=== PATIENT | male | born 1940 | race Caucasian/White ===

== ENCOUNTER 2019-10-30 12:17 | Emergency (ER) | payer MEDICARE ==
[~2019-10-30] VITALS: Ht 180.3 cm; Wt 93.2 kg
[~2019-10-30 12:17] MED LIST: ASPI-1264 PO; ATOR20TA66 PO; DOCU100C40 PO; FERR1TAB9 PO; METO25TA6 PO
--- NOTE | 2019-10-30 12:58 | NUR ---
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 The stoma is connected to a drainage bag to gravity for urine.
[2019-10-30] MEDS ORDERED: normal saline 1000ML IV soln IVB ONE (13:05)
[2019-10-30] MEDS ORDERED: dexamethasone sod phosphate 10mg/ml inj IV STA (13:05)
[2019-10-30] MEDS ORDERED: diphenhydrAMINE 50 mg/ml inj IV ONE (13:05)
[2019-10-30] MEDS ORDERED: diazepam inj 5 MG/ML inj. IV ONE (13:05)
[2019-10-30 13:25] LABS: BASOPHILS # (AUTO) 0.1 X10'3 (0-0.2); BASOPHILS % (AUTO) 0.9 % (0-1); EOSINOPHILS # (AUTO) 0.1 X10'3 (0-0.9); EOSINOPHILS % (AUTO) 1.7 % (0-6); HEMATOCRIT 44.6 % (42.0-52.0); HEMOGLOBIN 15.4 g/dl (14.0-17.9); LYMPHOCYTES # (AUTO) 0.8 X10'3 (1.1-4.8); LYMPHOCYTES % (AUTO) 12.7 % (21-51); MEAN CORPUSCULAR HEMOGLOBIN 34.5 PG (27.0-31.0); MEAN CORPUSCULAR HGB CONC 34.4 g/dL (33.0-36.5); MEAN CORPUSCULAR VOLUME 100.1 FL (78-98); MEAN PLATELET VOLUME 7.5 FL (7.4-10.4); MONOCYTES # (AUTO) 0.4 X10'3 (0-0.9); MONOCYTES % (AUTO) 5.8 % (2-12); NEUTROPHILS # (AUTO) 4.9 X10'3 (1.8-7.7); NEUTROPHILS % (AUTO) 78.9 % (42-75); PLATELET COUNT 121 X10'3 (140-440); RED BLOOD COUNT 4.46 X10'6 (4.70-6.10); RED CELL DISTRIBUTION WIDTH 12.9 % (11.5-14.5); WHITE BLOOD COUNT 6.2 X10'3 (4.5-11.0)
[2019-10-30 13:40] LABS: ALANINE AMINOTRANSFERASE 16 U/L (12-78); ALBUMIN 3.6 G/DL (3.4-5.0); ALBUMIN/GLOBULIN RATIO 1.1 (1.1-1.5); ALKALINE PHOSPHATASE 66 IU/L (46-116); ANION GAP 5 (8-16); ASPARTATE AMINO TRANSFERASE 17 U/L (10-37); BILIRUBIN,TOTAL 1.1 MG/DL (0.1-1.0); BLOOD UREA NITROGEN 18 MG/DL (7-18); BUN/CREATININE RATIO 12.9 (5.4-32.0); CALCIUM 9.2 MG/DL (8.5-10.1); CHLORIDE 109 MMOL/L (99-107); GLUCOSE 110 MG/DL (70-104); POTASSIUM 4.6 MMOL/L (3.5-5.1); SODIUM 141 MMOL/L (135-145); TOTAL CARBON DIOXIDE 26.7 MMOL/L (24-32); eGFR 49 ML/MIN
[2019-10-30] MEDS ORDERED: MECL-159 PO (14:03)
[2019-10-30 14:43] VITALS: BP 104/74
== END 2019-10-30 14:48 | disposition home or self-care (01) ==
LOC: ER 12:18
DX: R42 Dizziness and giddiness (principal); I25.10 Atherosclerotic heart disease of native coronary artery without angina pectoris; Z87.442 Personal history of urinary calculi; Z98.890 Other specified postprocedural states; Z79.82 Long term (current) use of aspirin; Z79.899 Other long term (current) drug therapy
CPT/HCPCS: 36415; 80053; 85025; 96361; 96374; 96375; 99284; J1100; J1200; J3360; J7030

== ENCOUNTER 2022-09-10 07:09 | Emergency (ER) | payer MEDICARE ==
[~2022-09-10] VITALS: Ht 180.3 cm; Wt 76.4 kg
[~2022-09-10 07:09] MED LIST changes: +LOP25T PO; +MECL-159 PO; -METO25TA6 PO
[2022-09-10 09:34] VITALS: BP 127/66
== END 2022-09-10 09:35 | disposition home or self-care (01) ==
LOC: ER 07:09
DX: M70.31 Other bursitis of elbow, right elbow (principal); Z88.2 Allergy status to sulfonamides; Y93.89 Activity, other specified
CPT/HCPCS: 99282; A6449

== ENCOUNTER 2022-12-05 18:42 | Inpatient (IN) | payer MEDICARE ==
[~2022-12-05] VITALS: Ht 177.8 cm; Wt 74.0 kg
[2022-12-05 19:29] LABS: BASOPHILS # (AUTO) 0.1 X10'3 (0-0.2); EOSINOPHILS # (AUTO) 0.1 X10'3 (0-0.9); EOSINOPHILS % (AUTO) 2.1 % (0-6); HEMATOCRIT 45.5 % (42.0-52.0); HEMOGLOBIN 15.6 g/dl (14.0-17.9); LYMPHOCYTES # (AUTO) 1.5 X10'3 (1.1-4.8); LYMPHOCYTES % (AUTO) 23.1 % (21-51); MEAN CORPUSCULAR HEMOGLOBIN 34.3 PG (27.0-31.0); MEAN CORPUSCULAR HGB CONC 34.2 g/dL (33.0-36.5); MEAN CORPUSCULAR VOLUME 100.2 FL (78-98); MEAN PLATELET VOLUME 8.1 FL (7.4-10.4); MONOCYTES # (AUTO) 0.4 X10'3 (0-0.9); MONOCYTES % (AUTO) 6.6 % (2-12); NEUTROPHILS # (AUTO) 4.2 X10'3 (1.8-7.7); NEUTROPHILS % (AUTO) 67.2 % (42-75); PLATELET COUNT 116 X10'3 (140-440); RED BLOOD COUNT 4.54 X10'6 (4.70-6.10); RED CELL DISTRIBUTION WIDTH 13.5 % (11.5-14.5); WHITE BLOOD COUNT 6.3 X10'3 (4.5-11.0)
[2022-12-05 19:40] LABS: ALANINE AMINOTRANSFERASE 13 U/L (12-78); ALBUMIN 4.1 G/DL (3.4-5.0); ALBUMIN/GLOBULIN RATIO 1.3 (1.1-1.5); ALKALINE PHOSPHATASE 63 IU/L (46-116); ANION GAP 7 (8-16); ASPARTATE AMINO TRANSFERASE 19 U/L (10-37); BILIRUBIN,TOTAL 0.5 MG/DL (0.1-1.0); BLOOD UREA NITROGEN 22 MG/DL (7-18); BUN/CREATININE RATIO 15.9 (10.0-20.0); CALCIUM 9.2 MG/DL (8.5-10.1); CHLORIDE 106 MMOL/L (99-107); CREATININE 1.38 MG/DL (0.60-1.10); GLUCOSE 130 MG/DL (70-104); POTASSIUM 4.4 MMOL/L (3.5-5.1); SODIUM 141 MMOL/L (135-145); TOTAL CARBON DIOXIDE 28.2 MMOL/L (24-32); TOTAL PROTEIN 7.2 G/DL (6.4-8.2); eGFR 49 ML/MIN
[2022-12-05 19:49] LABS: LIPASE 126 U/L (73-393)
[2022-12-05 20:42] LABS: ETHANOL < 0.010 GM/DL (0.0-0.010)
[2022-12-05] MEDS ORDERED: ondansetron/PF 4mg/2ml inj IV ONE (20:45)
[2022-12-05] MEDS ORDERED: normal saline 1000ML IV soln IVB ONE (20:45)
[2022-12-05] MEDS ORDERED: normal saline 1000ml 1,000 ML IV ONE (20:45)
[2022-12-05] MEDS: morphine 2 MG/ML inj. syringe IV PRN (21:15)
[2022-12-06] MEDS ORDERED: piperacillin/tazo 4.5gm/100ml 100 ML IV SCH (00:30)
[2022-12-06] MEDS: morphine 2 MG/ML inj. syringe IV PRN ×6 (00:43→20:02)
[2022-12-06] MEDS ORDERED: morphine 2 MG/ML inj. syringe IV PRN (00:45)
[2022-12-06] MEDS ORDERED: acetaminophen 325mg tablet PO PRN (01:10)
[2022-12-06] MEDS ORDERED: potassium Cl 40MEQ/1/2NS 520ml 520 ML IV PRN (01:10)
[2022-12-06] MEDS ORDERED: ondansetron/PF 4mg/2ml inj IV PRN (01:10)
[2022-12-06] MEDS: normal saline 1000ml 1,000 ML IV SCH ×4 (01:20→21:16)
[2022-12-06] MEDS ORDERED: CEPH-585 PO (01:41)
[2022-12-06 02:29] LABS: CLARITY,URINE TURBID (Clear); COLOR,URINE YELLOW (Yellow); GLUCOSE, URINE NEGATIVE (Neg); KETONES,URINE 15 mg/dl (Neg); LEUKOCYTE ESTERASE ,URINE TRACE (Neg); NITRITES, URINE POSITIVE (Neg); OCCULT BLOOD,URINE SMALL (Neg); PROTEIN,URINE NEGATIVE (Neg); UROBILINOGEN,URINE 0.2 E.U/dL (0.2-1.0)
[2022-12-06 02:34] LABS: UA COLLECTION TYPE NON-SPECIFIED
[2022-12-06 02:36] LABS: SQUAMOUS EPITHELIAL CELL,UR FEW /LPF (FEW)
[2022-12-06 02:37] LABS: WBC,URINE 50-100 /HPF (0-4)
[2022-12-06 02:38] LABS: BACTERIA,URINE 2+ /HPF (Neg); MUCUS STRANDS FEW /LPF (Neg); TRANSITIONAL EPI CELLS,URINE FEW /HPF
[2022-12-06 02:40] LABS: WBC CLUMPS,URINE FEW /HPF (NEGATIVE)
[2022-12-06] MEDS ORDERED: ATOR10TA87 PO (07:23)
[2022-12-06] MEDS ORDERED: LOP25T PO (07:23)
[2022-12-06] MEDS ORDERED: ASPI81TA52 PO (07:23)
[2022-12-06] MEDS ORDERED: ASPI-611 PO (07:25)
[2022-12-06] MEDS: K and/or MAG REPLACEMENT MC SCH ×2 (08:00→19:58)
--- NOTE | 2022-12-06 08:03 | NUR ---
Patient in room ED 16. I have received report from Estefania in the ED and had the opportunity to ask questions and assume patient care.
[2022-12-06 08:30] VITALS: BP 135/64
[2022-12-06] MEDS: heparin, porcine 5000 units/ml vial SQ SCH ×2 (08:54→20:01)
[2022-12-06 10:00] VITALS: BP 142/76
[2022-12-06] MEDS: piperacillin/tazo 3.375gm/50ml 50 ML IV SCH ×2 (16:15→23:45)
[2022-12-06 18:00] VITALS: BP 136/71
--- NOTE | 2022-12-06 18:30 | NUR ---
Problems reprioritized. Patient report given, questions answered & plan of care reviewed with Leticia Crockett
[2022-12-06] MEDS: diatr meglu/diatrizoate 30ml oral sol.-(3 dose) bottle PO SCH (21:12)
[2022-12-06 22:09] VITALS: BP 141/81
[2022-12-07] MEDS: morphine 2 MG/ML inj. syringe IV PRN ×4 (02:08→19:04)
[2022-12-07] MEDS: normal saline 1000ml 1,000 ML IV SCH ×4 (02:12→23:17)
[2022-12-07 05:54] LABS: BASOPHILS % (AUTO) 0.5 % (0-1); EOSINOPHILS # (AUTO) 0.1 X10'3 (0-0.9); EOSINOPHILS % (AUTO) 0.7 % (0-6); HEMATOCRIT 44.8 % (42.0-52.0); HEMOGLOBIN 15.4 g/dl (14.0-17.9); LYMPHOCYTES # (AUTO) 0.9 X10'3 (1.1-4.8); LYMPHOCYTES % (AUTO) 10.2 % (21-51); MEAN CORPUSCULAR HEMOGLOBIN 34.6 PG (27.0-31.0); MEAN CORPUSCULAR HGB CONC 34.3 g/dL (33.0-36.5); MEAN CORPUSCULAR VOLUME 100.8 FL (78-98); MEAN PLATELET VOLUME 8.5 FL (7.4-10.4); MONOCYTES # (AUTO) 0.6 X10'3 (0-0.9); NEUTROPHILS # (AUTO) 6.8 X10'3 (1.8-7.7); NEUTROPHILS % (AUTO) 81.6 % (42-75); PLATELET COUNT 102 X10'3 (140-440); RED BLOOD COUNT 4.44 X10'6 (4.70-6.10); RED CELL DISTRIBUTION WIDTH 13.4 % (11.5-14.5); WHITE BLOOD COUNT 8.3 X10'3 (4.5-11.0)
--- NOTE | 2022-12-07 05:55 | NUR ---
Report given to Eduin CORONA, all questions answered at this time. Pt awake in bed. Pain med given and patient is resting comfortably at this time.
[2022-12-07 06:00] VITALS: BP 147/73
[2022-12-07 06:07] LABS: ALANINE AMINOTRANSFERASE 11 U/L (12-78); ALBUMIN 3.4 G/DL (3.4-5.0); ALBUMIN/GLOBULIN RATIO 1.2 (1.1-1.5); ALKALINE PHOSPHATASE 56 IU/L (46-116); ANION GAP 7 (8-16); ASPARTATE AMINO TRANSFERASE 17 U/L (10-37); BILIRUBIN,TOTAL 1.2 MG/DL (0.1-1.0); BLOOD UREA NITROGEN 16 MG/DL (7-18); BUN/CREATININE RATIO 11.9 (10.0-20.0); CALCIUM 8.5 MG/DL (8.5-10.1); CHLORIDE 108 MMOL/L (99-107); CREATININE 1.34 MG/DL (0.60-1.10); GLUCOSE 122 MG/DL (70-104); POTASSIUM 4.4 MMOL/L (3.5-5.1); SODIUM 141 MMOL/L (135-145); TOTAL CARBON DIOXIDE 26.2 MMOL/L (24-32); TOTAL PROTEIN 6.2 G/DL (6.4-8.2); eGFR 51 ML/MIN
[2022-12-07] MEDS: diatr meglu/diatrizoate 30ml oral sol.-(3 dose) bottle PO SCH ×2 (07:13→11:14)
[2022-12-07] MEDS: K and/or MAG REPLACEMENT MC SCH ×2 (07:14→20:00)
[2022-12-07] MEDS: heparin, porcine 5000 units/ml vial SQ SCH ×2 (07:14→21:13)
[2022-12-07] MEDS: piperacillin/tazo 3.375gm/50ml 50 ML IV SCH (07:14)
[2022-12-07 10:00] VITALS: BP 133/74
[2022-12-07] MEDS: CefTRIAXone/D5W-Rocephin 1gm 50 ML IV SCH (10:35)
[2022-12-07] MEDS ORDERED: iohexol 300mg/ml 100ml inj. ONE (11:16)
--- NOTE | 2022-12-07 11:22 | NUR ---
pt down to cat scan via w/c
--- NOTE | 2022-12-07 15:30 | NUR ---
Patient in room [facility]TH[facility] 4024. I have received report from Angel CORONA and had the opportunity to ask questions and assume patient care.
--- NOTE | 2022-12-07 15:37 | NUR ---
reported to Yahaira. noted patient resting w/o distress. still no CT result
[2022-12-07 17:00] VITALS: BP 114/70
--- NOTE | 2022-12-07 19:20 | NUR ---
He has a pink stoma that has an ostomy bag over that is draining urine since he had his bladder removed in 2014. Addendum: 12/08/22 at 0322 by Aby Gupta RN Amended: Links added.
[2022-12-07] MEDS: docusate sod 100mg capsule PO SCH (20:00)
[2022-12-07] MEDS: atorvastatin 10mg tablet PO SCH (20:59)
--- NOTE | 2022-12-07 21:00 | NUR ---
Agree with Yahaira AVENDAÑO physical assessment except where I documented my findings.
--- NOTE | 2022-12-07 21:07 | NUR ---
PAGER ID: [phone] MESSAGE: [id number]- Nas A- Patient PLT is 102. do you still want to give heparin? pls advise? Tapan smith [phone]
[2022-12-07 22:00] VITALS: BP 130/77
[2022-12-08 02:00] VITALS: BP 134/73
--- NOTE | 2022-12-08 03:00 | NUR ---
Took over care of patient from Yahaira METEOROLOGIST LIAISON at this time.
--- NOTE | 2022-12-08 03:02 | NUR ---
Problems reprioritized. Patient report given, questions answered & plan of care reviewed with Aby CORONA.
[2022-12-08 06:00] VITALS: BP 125/68
--- NOTE | 2022-12-08 06:29 | NUR ---
Problems reprioritized. Patient report given, questions answered & plan of care reviewed with Perla AVENDAÑO.
--- NOTE | 2022-12-08 06:32 | NUR ---
Received report from CHLOE Badillo. Reviewed patients plan of care. Patient in no acute distress.
[2022-12-08 07:20] LABS: BASOPHILS % (AUTO) 0.6 % (0-1); EOSINOPHILS # (AUTO) 0.1 X10'3 (0-0.9); HEMATOCRIT 41.3 % (42.0-52.0); LYMPHOCYTES # (AUTO) 1.1 X10'3 (1.1-4.8); LYMPHOCYTES % (AUTO) 16.8 % (21-51); MEAN CORPUSCULAR HEMOGLOBIN 34.3 PG (27.0-31.0); MEAN CORPUSCULAR HGB CONC 33.8 g/dL (33.0-36.5); MEAN CORPUSCULAR VOLUME 101.5 FL (78-98); MEAN PLATELET VOLUME 8.3 FL (7.4-10.4); MONOCYTES # (AUTO) 0.4 X10'3 (0-0.9); MONOCYTES % (AUTO) 6.5 % (2-12); NEUTROPHILS # (AUTO) 4.7 X10'3 (1.8-7.7); NEUTROPHILS % (AUTO) 74.1 % (42-75); PLATELET COUNT 92 X10'3 (140-440); RED BLOOD COUNT 4.08 X10'6 (4.70-6.10); RED CELL DISTRIBUTION WIDTH 13.7 % (11.5-14.5); WHITE BLOOD COUNT 6.3 X10'3 (4.5-11.0)
[2022-12-08] MEDS: CefTRIAXone/D5W-Rocephin 1gm 50 ML IV SCH (07:21)
[2022-12-08 07:46] LABS: ALANINE AMINOTRANSFERASE 8 U/L (12-78); ALBUMIN 3.1 G/DL (3.4-5.0); ALBUMIN/GLOBULIN RATIO 1.1 (1.1-1.5); ALKALINE PHOSPHATASE 46 IU/L (46-116); ANION GAP 7 (8-16); ASPARTATE AMINO TRANSFERASE 15 U/L (10-37); BILIRUBIN,TOTAL 0.9 MG/DL (0.1-1.0); BLOOD UREA NITROGEN 15 MG/DL (7-18); BUN/CREATININE RATIO 11.7 (10.0-20.0); CALCIUM 8.3 MG/DL (8.5-10.1); CHLORIDE 108 MMOL/L (99-107); CREATININE 1.28 MG/DL (0.60-1.10); GLUCOSE 79 MG/DL (70-104); SODIUM 141 MMOL/L (135-145); TOTAL CARBON DIOXIDE 26.4 MMOL/L (24-32); TOTAL PROTEIN 5.9 G/DL (6.4-8.2); eGFR 54 ML/MIN
[2022-12-08] MEDS: heparin, porcine 5000 units/ml vial SQ SCH ×2 (08:00→19:48)
[2022-12-08] MEDS ORDERED: metoprolol tartrate 12.5mg (1/2 tablet) PO SCH (08:00)
[2022-12-08] MEDS: K and/or MAG REPLACEMENT MC SCH ×2 (08:00→19:48)
[2022-12-08] MEDS: docusate sod 100mg capsule PO SCH ×2 (08:41→20:18)
[2022-12-08] MEDS: normal saline 1000ml 1,000 ML IV SCH (08:44)
--- NOTE | 2022-12-08 08:48 | NUR ---
Patients plt: 92. Holding Heparin injection today, Will notify provider on rounding.
--- NOTE | 2022-12-08 09:24 | NUR ---
Dr. Wray verbalized in rounding this patient can start clear liquids. No advancing until MD re-addresses. Order placed.
[2022-12-08 10:00] VITALS: BP 131/72
--- NOTE | 2022-12-08 16:13 | NUR ---
I agree with STUDENT SUPPORT ADVISOR assessment
--- NOTE | 2022-12-08 18:30 | NUR ---
Patient in room [facility]TH[facility] 4024. I have received report from KATERYNA Duncan and had the opportunity to ask questions and assume patient care.
--- NOTE | 2022-12-08 18:34 | NUR ---
Gave report to KATERYNA Cochran. Reviewed patients plan of care. NAD at this time.
[2022-12-08 20:00] VITALS: BP 116/54
[2022-12-08] MEDS: metoprolol tartrate 12.5mg (1/2 tablet) PO SCH (20:00)
--- NOTE | 2022-12-08 20:00 | NUR ---
Zhanga DRU, with urine draining into bag. Yellow, clear Addendum: 12/09/22 at 0255 by Sammie Dawson LVN, LVN Amended: Links added.
[2022-12-08] MEDS: atorvastatin 10mg tablet PO SCH (20:18)
[2022-12-08 22:00] VITALS: BP 117/53
--- NOTE | 2022-12-09 04:08 | NUR ---
Agree with Sammie AVENDAÑO physical assessment except where I documented my findings.
[2022-12-09 06:00] VITALS: BP 122/64
[2022-12-09 06:00] LABS: BASOPHILS % (AUTO) 0.7 % (0-1); EOSINOPHILS # (AUTO) 0.2 X10'3 (0-0.9); EOSINOPHILS % (AUTO) 3.3 % (0-6); HEMATOCRIT 38.4 % (42.0-52.0); HEMOGLOBIN 12.9 g/dl (14.0-17.9); LYMPHOCYTES % (AUTO) 19.1 % (21-51); MEAN CORPUSCULAR HEMOGLOBIN 33.8 PG (27.0-31.0); MEAN CORPUSCULAR HGB CONC 33.6 g/dL (33.0-36.5); MEAN CORPUSCULAR VOLUME 100.6 FL (78-98); MEAN PLATELET VOLUME 8.5 FL (7.4-10.4); MONOCYTES # (AUTO) 0.4 X10'3 (0-0.9); MONOCYTES % (AUTO) 8.1 % (2-12); NEUTROPHILS # (AUTO) 3.4 X10'3 (1.8-7.7); NEUTROPHILS % (AUTO) 68.8 % (42-75); PLATELET COUNT 85 X10'3 (140-440); RED BLOOD COUNT 3.82 X10'6 (4.70-6.10); RED CELL DISTRIBUTION WIDTH 13.3 % (11.5-14.5)
[2022-12-09 06:17] LABS: ALANINE AMINOTRANSFERASE 10 U/L (12-78); ALBUMIN 2.9 G/DL (3.4-5.0); ALBUMIN/GLOBULIN RATIO 1.2 (1.1-1.5); ALKALINE PHOSPHATASE 42 IU/L (46-116); ANION GAP 4 (8-16); ASPARTATE AMINO TRANSFERASE 18 U/L (10-37); BILIRUBIN,TOTAL 0.9 MG/DL (0.1-1.0); BLOOD UREA NITROGEN 14 MG/DL (7-18); BUN/CREATININE RATIO 12.1 (10.0-20.0); CALCIUM 8.3 MG/DL (8.5-10.1); CHLORIDE 109 MMOL/L (99-107); CREATININE 1.16 MG/DL (0.60-1.10); GLUCOSE 82 MG/DL (70-104); POTASSIUM 3.8 MMOL/L (3.5-5.1); SODIUM 141 MMOL/L (135-145); TOTAL CARBON DIOXIDE 27.8 MMOL/L (24-32); TOTAL PROTEIN 5.4 G/DL (6.4-8.2); eGFR 60 ML/MIN
--- NOTE | 2022-12-09 06:23 | NUR ---
Problems reprioritized. Patient report given, questions answered & plan of care reviewed with KATERYNA Espino.
--- NOTE | 2022-12-09 07:02 | NUR ---
Patient in room [facility]TH[facility] 4024. I have received report from KATERYNA Cochran and had the opportunity to ask questions and assume patient care.
[2022-12-09] MEDS: docusate sod 100mg capsule PO SCH (07:54)
[2022-12-09] MEDS: metoprolol tartrate 12.5mg (1/2 tablet) PO SCH (07:58)
[2022-12-09] MEDS ORDERED: aspirin 81mg, enteric-coated 1 TAB TABLET.DR PO SCH (08:00)
[2022-12-09] MEDS: heparin, porcine 5000 units/ml vial SQ SCH (08:00)
[2022-12-09] MEDS: K and/or MAG REPLACEMENT MC SCH (08:00)
--- NOTE | 2022-12-09 08:30 | NUR ---
Patient refused am Rocephin. Patient states he does not need that he takes Keflex at home. Discussed with patient and at bedside will hold off and they can speak with Dr when he rounds and if they change there mind we can give antibiotics at that time.
[2022-12-09] MEDS: normal saline 1000ml 1,000 ML IV SCH (09:10)
[2022-12-09 10:00] VITALS: BP 106/50
--- NOTE | 2022-12-09 13:34 | NUR ---
Patient was discharged home. Discharge information was review with patient, whom verbalize understanding. Staff assisted patient to personal vehicle with all belongings.
== END 2022-12-09 12:30 | disposition home or self-care (01) | DRG 389 ==
LOC: ER 18:43 → ED HOLD 12-06 01:11 → ORTHO 4S 12-06 08:27
PROVIDERS: ADMIT Internal Medicine; ATTEND Family Medicine
PROC: BW211ZZ Computerized Tomography (CT Scan) of Abdomen and Pelvis using Low Osmolar Contrast (ICD-10-PCS; principal; 2022-12-07)
DX: K56.600 Partial intestinal obstruction, unspecified as to cause (principal); N17.9 Acute kidney failure, unspecified; I25.10 Atherosclerotic heart disease of native coronary artery without angina pectoris; N18.30 Chronic kidney disease, stage 3 unspecified; K80.20 Calculus of gallbladder without cholecystitis without obstruction; R00.1 Bradycardia, unspecified; E86.0 Dehydration; B96.5 Pseudomonas (aeruginosa) (mallei) (pseudomallei) as the cause of diseases classified elsewhere; B95.2 Enterococcus as the cause of diseases classified elsewhere; E78.5 Hyperlipidemia, unspecified; Z79.82 Long term (current) use of aspirin; Z85.51 Personal history of malignant neoplasm of bladder; Z87.442 Personal history of urinary calculi; Z88.2 Allergy status to sulfonamides; Z95.1 Presence of aortocoronary bypass graft; Z79.899 Other long term (current) drug therapy; Z88.8 Allergy status to other drugs, medicaments and biological substances; Z87.440 Personal history of urinary (tract) infections
CPT/HCPCS: 36415; 71045; 74176; 74177; 80053; 80320; 81001; 83690; 83880; 84132; 84484; 85025; 87077; 87088; 87186; 93005; 99285; G0378; J0696; J1644; J2270; J2405; J2543; J3490; J7030; Q9963; Q9967

== ENCOUNTER 2023-12-07 07:24 | Day surgery (SDC) | payer MEDICARE ==
[2023-11-30 16:03] LABS: BASOPHILS # (AUTO) 0.1 X10'3 (0-0.2); BASOPHILS % (AUTO) 0.7 % (0-1); EOSINOPHILS # (AUTO) 0.1 X10'3 (0-0.9); EOSINOPHILS % (AUTO) 1.2 % (0-6); HEMATOCRIT 40.4 % (42.0-52.0); HEMOGLOBIN 13.8 g/dl (14.0-17.9); LYMPHOCYTES # (AUTO) 1.1 X10'3 (1.1-4.8); LYMPHOCYTES % (AUTO) 12.4 % (21-51); MEAN CORPUSCULAR HEMOGLOBIN 33.6 PG (27.0-31.0); MEAN CORPUSCULAR HGB CONC 34.2 g/dL (33.0-36.5); MEAN CORPUSCULAR VOLUME 98.3 FL (78-98); MEAN PLATELET VOLUME 7.7 FL (7.4-10.4); MONOCYTES # (AUTO) 0.5 X10'3 (0-0.9); NEUTROPHILS # (AUTO) 6.8 X10'3 (1.8-7.7); NEUTROPHILS % (AUTO) 79.7 % (42-75); PLATELET COUNT 161 X10'3 (140-440); RED CELL DISTRIBUTION WIDTH 13.3 % (11.5-14.5); WHITE BLOOD COUNT 8.6 X10'3 (4.5-11.0)
[2023-11-30 16:18] LABS: ALANINE AMINOTRANSFERASE 12 U/L (12-78); ALBUMIN 3.7 G/DL (3.4-5.0); ALKALINE PHOSPHATASE 75 IU/L (46-116); ANION GAP 9 (8-16); ASPARTATE AMINO TRANSFERASE 15 U/L (10-37); BILIRUBIN,TOTAL 0.7 MG/DL (0.1-1.0); BLOOD UREA NITROGEN 20 MG/DL (7-18); BUN/CREATININE RATIO 14.8 (10.0-20.0); CALCIUM 9.1 MG/DL (8.5-10.1); CHLORIDE 104 MMOL/L (99-107); CREATININE 1.35 MG/DL (0.60-1.10); GLUCOSE 96 MG/DL (70-104); POTASSIUM 4.6 MMOL/L (3.5-5.1); SODIUM 140 MMOL/L (135-145); TOTAL CARBON DIOXIDE 27.4 MMOL/L (24-32); TOTAL PROTEIN 7.5 G/DL (6.4-8.2); eGFR 51 ML/MIN
[~2023-12-07] VITALS: Ht 177.8 cm; Wt 72.0 kg
[2023-12-07] MEDS: DOCUMENT DATE & TIME OF BETA-BLOCKER PO ONE (06:30)
[~2023-12-07 07:24] MED LIST changes: -ASPI-1264 PO; +CEPH-585 PO; +CYAN-104 PO; +DOCU100C38 PO; -DOCU100C40 PO; -FERR1TAB9 PO; -MECL-159 PO
[2023-12-07 07:30] VITALS: BP 124/71; PULSE 58; RESP 16; TEMP 98.4; O2SAT 98
[2023-12-07] MEDS: famotidine 20mg tablet PO ONE (08:24)
[2023-12-07] MEDS: ringers solution, lacted 1,000 ML IV SCH (08:25)
[2023-12-07] MEDS ORDERED: enalaprilat dihydrate 2.5mg/2ml vial IV PRN (08:45)
[2023-12-07] MEDS ORDERED: meperidine/PF 25mg/ml syringe IV PRN ×3 (08:45)
[2023-12-07] MEDS ORDERED: morphine 4 MG/ML inj SYRINge IV PRN (08:45)
[2023-12-07] MEDS ORDERED: ondansetron/PF 4mg/2ml inj IV PRN (08:45)
[2023-12-07] MEDS ORDERED: ringers solution, lacted 1,000 ML IV SCH (08:45)
[2023-12-07] MEDS ORDERED: labetalol 20mg/4ml (5mg/ml) syringe IV PRN (08:45)
[2023-12-07] MEDS ORDERED: proCHLORperazine 10 MG/2 ml inj IV PRN (08:45)
[2023-12-07] MEDS ORDERED: morphine 2 MG/ML inj. syringe IV PRN (08:45)
[2023-12-07] MEDS ORDERED: sevoflurane 250ml liquid IH ONE (10:10)
[2023-12-07] MEDS ORDERED: midazolam 1 mg/ML 2ml injection ONE (10:21)
[2023-12-07] MEDS ORDERED: fentaNYL/PF 50MCG/1 ML 2ML syringe ONE (10:21)
[2023-12-07] MEDS ORDERED: propofol inj 20 ML IV ONE (11:15)
[2023-12-07] MEDS ORDERED: rocuronium 10mg/ml inj IV ONE ×2 (11:15→11:22)
[2023-12-07 11:28] VITALS: BP 135/72; PULSE 59; RESP 16; O2SAT 99
[2023-12-07 11:30] VITALS: BP 116/59; PULSE 59; RESP 14; O2SAT 95
[2023-12-07 11:40] VITALS: BP 105/64; PULSE 53; RESP 17; O2SAT 94
[2023-12-07 11:50] VITALS: BP 115/63; PULSE 67; RESP 16; O2SAT 92
[2023-12-07 12:00] VITALS: BP 99/59; PULSE 62; RESP 12; O2SAT 95
== END 2023-12-07 12:08 | disposition home or self-care (01) ==
LOC: PAS 07:24
PROVIDERS: ATTEND Internal Medicine Critical Care Medicine
DX: R91.8 Other nonspecific abnormal finding of lung field (principal); I45.2 Bifascicular block; C34.12 Malignant neoplasm of upper lobe, left bronchus or lung; I12.9 Hypertensive chronic kidney disease with stage 1 through stage 4 chronic kidney disease, or unspecified chronic kidney disease; N18.9 Chronic kidney disease, unspecified; I25.10 Atherosclerotic heart disease of native coronary artery without angina pectoris; J44.9 Chronic obstructive pulmonary disease, unspecified; I25.2 Old myocardial infarction; Z87.891 Personal history of nicotine dependence; Z85.51 Personal history of malignant neoplasm of bladder; Z79.899 Other long term (current) drug therapy; Z95.1 Presence of aortocoronary bypass graft; Z88.1 Allergy status to other antibiotic agents
CPT/HCPCS: 31624; 31627; 31653; 36415; 71045; 71250; 80053; 82948; 85025; 87015; 87070; 87116; 87206; 93005; 94760; J1100; J2250; J2405; J2704; J2710; J3010; J3490; J7120; Z7506; Z7508; Z7512; 31622; 31625; 31626; 31628; 31654; A4618

== ENCOUNTER 2023-12-18 10:18 | Emergency (ER) | payer MEDICARE ==
[~2023-12-18] VITALS: Ht 180.3 cm; Wt 72.7 kg
[~2023-12-18 10:18] MED LIST changes: +ASPI-1071 PO; +ATOR10TA87 PO; -ATOR20TA66 PO; -CEPH-585 PO
[2023-12-18 14:51] LABS: BASOPHILS # (AUTO) 0.1 X10'3 (0-0.2); BASOPHILS % (AUTO) 0.6 % (0-1); EOSINOPHILS # (AUTO) 0.1 X10'3 (0-0.9); EOSINOPHILS % (AUTO) 1.3 % (0-6); HEMOGLOBIN 12.9 g/dl (14.0-17.9); LYMPHOCYTES # (AUTO) 0.8 X10'3 (1.1-4.8); LYMPHOCYTES % (AUTO) 9.3 % (21-51); MEAN CORPUSCULAR HEMOGLOBIN 32.8 PG (27.0-31.0); MEAN CORPUSCULAR HGB CONC 33.2 g/dL (33.0-36.5); MONOCYTES # (AUTO) 0.6 X10'3 (0-0.9); MONOCYTES % (AUTO) 7.1 % (2-12); NEUTROPHILS # (AUTO) 7.1 X10'3 (1.8-7.7); NEUTROPHILS % (AUTO) 81.7 % (42-75); PLATELET COUNT 126 X10'3 (140-440); RED BLOOD COUNT 3.94 X10'6 (4.70-6.10); RED CELL DISTRIBUTION WIDTH 13.5 % (11.5-14.5); WHITE BLOOD COUNT 8.7 X10'3 (4.5-11.0)
[2023-12-18 14:55] LABS: ANION GAP 7 (8-16); BLOOD UREA NITROGEN 29 MG/DL (7-18); BUN/CREATININE RATIO 14.8 (10.0-20.0); CALCIUM 8.5 MG/DL (8.5-10.1); CHLORIDE 108 MMOL/L (99-107); CREATININE 1.96 MG/DL (0.60-1.10); GLUCOSE 130 MG/DL (70-104); POTASSIUM 4.5 MMOL/L (3.5-5.1); SODIUM 141 MMOL/L (135-145); TOTAL CARBON DIOXIDE 26.4 MMOL/L (24-32); eCRCL 30 ML/MIN; eGFR 33 ML/MIN
[2023-12-18 15:01] LABS: APTT 32 SECONDS (22-32); INR 1.2 INR
[2023-12-18 15:33] VITALS: BP 104/44; PULSE 64; RESP 14; TEMP 98.4; O2SAT 98
== END 2023-12-18 15:40 ==
LOC: ER 10:19
DX: I62.00 Nontraumatic subdural hemorrhage, unspecified (principal); I25.10 Atherosclerotic heart disease of native coronary artery without angina pectoris; Z95.1 Presence of aortocoronary bypass graft; Z86.73 Personal history of transient ischemic attack (TIA), and cerebral infarction without residual deficits; Z85.9 Personal history of malignant neoplasm, unspecified; Z88.8 Allergy status to other drugs, medicaments and biological substances; Z79.82 Long term (current) use of aspirin; Z79.899 Other long term (current) drug therapy
CPT/HCPCS: 36415; 70450; 80048; 85025; 85610; 85730; 93005; 99285